=== PATIENT | female | born 1945 | race African-American/Black ===

== ENCOUNTER 2019-01-10 13:54 | Inpatient (IN) | payer MEDICARE, OTHER ==
[~2019-01-10] VITALS: Ht 160 cm; Wt 80.7 kg
[2019-01-10] MEDS ORDERED: METHYLPREDNISOLONE SOD SUCC 125 MG/2 ML VIAL IV STA (14:28)
[2019-01-10] MEDS ORDERED: ALBUTEROL (0.083%) 2.5MG/3ML NEB HHN STA (14:28)
[2019-01-10] MEDS ORDERED: IPRATROPIUM BROMIDE (0.02%) 0.5MG/2.5ML NEB HHN STA (14:28)
[2019-01-10 15:30] LABS: BASOPHILS % 1.1 % (0.0-2.0); EOSINOPHILS % 1.6 % (0.0-5.0); HEMATOCRIT. 37.8 % (36.0-48.0); HEMOGLOBIN. 12.5 g/dL (12.0-16.0); LYMPHOCYTES % 31.5 % (20.0-50.0); MEAN CORPUSCULAR HEMOGLOBIN 27.9 pg (28.0-32.0); MEAN CORPUSCULAR VOLUME 84.7 fL (81.0-99.0); MONOCYTES % 14.6 % (2.0-8.0); NEUTROPHILS % 51.2 % (40.0-76.0); PLATELET 154 x1000/uL (130-400); RED BLOOD CELL COUNT 4.47 mill/uL (4.2-5.4); RED CELL DISTRIBUTION WIDTH 13.3 % (11.6-14.6)
[2019-01-10 15:32] LABS: CHLORIDE 110 mEq/L (98-107)
[2019-01-10] MEDS ORDERED: ALBUTEROL (0.5%) 2.5MG/0.5ML NEB HHN ONE (16:00)
[2019-01-10] MEDS ORDERED: ACETAMINOPHEN 325MG TABLET PO ONE (17:15)
[2019-01-10] MEDS ORDERED: MAGNESIUM 2 G PREMIX 50 ML IV ONE (17:15)
[2019-01-10] MEDS ORDERED: IPRATROPIUM/ALBUTEROL 0.5-3(2.5)MG/3ML NEB NEB PRN (21:45)
[2019-01-10] MEDS ORDERED: ONDANSETRON HCL 4MG/2ML INJ IV PRN (21:45)
[2019-01-10] MEDS ORDERED: GUAIFENESIN 200MG/10ML SUGAR FREE UDC PO PRN (21:45)
[2019-01-10] MEDS ORDERED: LORAZEPAM 2MG/ML CPJ IV PRN (21:45)
[2019-01-10] MEDS ORDERED: DIPHENHYDRAMINE 50MG/ML VIAL IV PRN (21:45)
[2019-01-10] MEDS ORDERED: DOCUSATE SODIUM 100MG CAPSULE PO PRN (21:45)
[2019-01-10] MEDS ORDERED: NA PHOS,M-B/NA PHOS,DI-BA ENEMA 118ML PR PRN (21:45)
[2019-01-10] MEDS ORDERED: MAGNESIUM/ALUMINUM HYDROXIDE/SIMETHICONE 30ML UDC PO PRN (21:45)
[2019-01-10] MEDS ORDERED: LIDOCAINE 5% PATCH TOP STA (21:49)
[2019-01-10] MEDS: HYDROCODONE/ACETAMINOPHEN 5/325MG TABLET PO PRN (22:08)
[2019-01-10 23:30] LABS: CHLORIDE 108 mEq/L (98-107)
[2019-01-11 00:15] VITALS: BP 130/70
[2019-01-11 01:00] VITALS: BP 137/70
[2019-01-11] MEDS: ACETAMINOPHEN 325MG TABLET PO PRN ×2 (02:42→12:56)
[2019-01-11] MEDS: METHYLPREDNISOLONE SOD SUCC 125 MG/2 ML VIAL IV SCH ×3 (02:42→12:56)
[2019-01-11] MEDS: LEVOFLOXACIN 500MG PREMIX 100 ML IV SCH (02:44)
[2019-01-11 04:00] VITALS: BP 143/83
[2019-01-11] MEDS: HYDROCODONE/ACETAMINOPHEN 5/325MG TABLET PO PRN ×2 (06:56→21:08)
[2019-01-11 07:19] LABS: BASOPHILS % 0.1 % (0.0-2.0); CHLORIDE 109 mEq/L (98-107); HEMATOCRIT. 34.9 % (36.0-48.0); HEMOGLOBIN. 11.7 g/dL (12.0-16.0); LYMPHOCYTES % 20.4 % (20.0-50.0); MEAN CORPUSCULAR HEMOGLOBIN 28.3 pg (28.0-32.0); MEAN CORPUSCULAR VOLUME 84.8 fL (81.0-99.0); MEAN PLATELET VOLUME 10.5 fl (7.4-10.4); MONOCYTES % 2.5 % (2.0-8.0); PLATELET 163 x1000/uL (130-400); RED BLOOD CELL COUNT 4.12 mill/uL (4.2-5.4); RED CELL DISTRIBUTION WIDTH 13.3 % (11.6-14.6)
[2019-01-11 07:32] LABS: LDL CHOLESTEROL 124 mg/dL (5-100)
[2019-01-11 07:34] LABS: HDL CHOLESTEROL 54 mg/dL (40-59); T4 FREE 0.74 ng/dL (0.76-1.46)
[2019-01-11] MEDS: ALBUTEROL (0.083%) 2.5MG/3ML NEB HHN PRN ×2 (08:40→16:31)
[2019-01-11] MEDS: ASPIRIN 81MG EC TABLET PO SCH (09:29)
[2019-01-11] MEDS: ENOXAPARIN 40MG/0.4ML SYR SUBCUT SCH (09:29)
[2019-01-11 12:00] VITALS: BP 138/74
[2019-01-11 12:18] LABS: T4 FREE 0.76 ng/dL (0.76-1.46)
[2019-01-11 16:00] VITALS: BP 148/90
[2019-01-11] MEDS: MORPHINE SULFATE 2 MG/ML CPJ (NOT FOR IM USE) IV PRN (19:03)
[2019-01-11 20:00] VITALS: BP 154/87
[2019-01-11] MEDS: ALBUTEROL (0.083%) 2.5MG/3ML NEB HHN SCH (20:05)
[2019-01-11] MEDS: METHYLPREDNISOLONE SOD SUCC 40 MG/ML VIAL IV SCH (21:07)
[2019-01-12] VITALS: BP_SYST 136; BP_DIAS 58; BP_DIAS 85
[2019-01-12] MEDS: ALBUTEROL (0.083%) 2.5MG/3ML NEB HHN SCH ×6 (00:12→20:10)
[2019-01-12] MEDS: MORPHINE SULFATE 2 MG/ML CPJ (NOT FOR IM USE) IV PRN ×2 (01:27→10:12)
[2019-01-12] MEDS: LEVOFLOXACIN 500MG PREMIX 100 ML IV SCH (02:06)
[2019-01-12 04:00] VITALS: BP 131/71
[2019-01-12] MEDS: METHYLPREDNISOLONE SOD SUCC 40 MG/ML VIAL IV SCH ×3 (06:20→21:45)
[2019-01-12 08:00] VITALS: BP 175/86
[2019-01-12] MEDS ORDERED: BENZONATATE 100MG CAPSULE PO PRN (09:15)
[2019-01-12] MEDS: ASPIRIN 81MG EC TABLET PO SCH (10:57)
[2019-01-12] MEDS: ENOXAPARIN 40MG/0.4ML SYR SUBCUT SCH (10:58)
[2019-01-12 12:00] VITALS: BP 152/65
[2019-01-12 16:00] VITALS: BP 138/83
[2019-01-12 20:00] VITALS: BP 160/89
[2019-01-12] MEDS: HYDROCODONE/ACETAMINOPHEN 5/325MG TABLET PO PRN (21:46)
[2019-01-12] MEDS: CLONIDINE 0.1MG TABLET PO PRN (21:46)
[2019-01-13] VITALS: BP 131/63
[2019-01-13] MEDS: ALBUTEROL (0.083%) 2.5MG/3ML NEB HHN SCH ×6 (00:45→20:22)
[2019-01-13] MEDS: LEVOFLOXACIN 500MG PREMIX 100 ML IV SCH (03:14)
[2019-01-13 04:00] VITALS: BP 127/81
[2019-01-13] MEDS: METHYLPREDNISOLONE SOD SUCC 40 MG/ML VIAL IV SCH ×3 (05:21→17:18)
[2019-01-13 08:00] VITALS: BP 137/69
[2019-01-13] MEDS: FLUTICASONE PROPIONATE 50MCG/SPRAY BOTTLE BOTHNSTRLS SCH (09:38)
[2019-01-13] MEDS: ASPIRIN 81MG EC TABLET PO SCH (09:38)
[2019-01-13] MEDS: ENOXAPARIN 40MG/0.4ML SYR SUBCUT SCH (09:39)
[2019-01-13 11:39] VITALS: BP 121/71
[2019-01-13 15:54] VITALS: BP 137/66
[2019-01-13] MEDS: MORPHINE SULFATE 2 MG/ML CPJ (NOT FOR IM USE) IV PRN (15:56)
[2019-01-13] MEDS: GUAIFENESIN 600MG ER TABLET PO SCH (22:56)
[2019-01-14] VITALS: BP 164/89
[2019-01-14] MEDS: MORPHINE SULFATE 2 MG/ML CPJ (NOT FOR IM USE) IV PRN (00:52)
[2019-01-14] MEDS: CLONIDINE 0.1MG TABLET PO PRN (00:53)
[2019-01-14] MEDS: ALBUTEROL (0.083%) 2.5MG/3ML NEB HHN SCH ×5 (00:57→15:48)
[2019-01-14 04:00] VITALS: BP 144/79
[2019-01-14] MEDS: ACETAMINOPHEN 325MG TABLET PO PRN (05:48)
[2019-01-14 08:00] VITALS: BP 144/80
[2019-01-14] MEDS ORDERED: LEVOFLOXACIN 500MG TABLET PO SCH (09:00)
[2019-01-14] MEDS: METHYLPREDNISOLONE SOD SUCC 40 MG/ML VIAL IV SCH ×2 (09:04→17:22)
[2019-01-14] MEDS: ENOXAPARIN 40MG/0.4ML SYR SUBCUT SCH (09:05)
[2019-01-14] MEDS: ASPIRIN 81MG EC TABLET PO SCH (09:05)
[2019-01-14] MEDS: HYDROCODONE/ACETAMINOPHEN 5/325MG TABLET PO PRN ×2 (09:05→13:44)
[2019-01-14] MEDS: GUAIFENESIN 600MG ER TABLET PO SCH (09:05)
[2019-01-14] MEDS: FLUTICASONE PROPIONATE 50MCG/SPRAY BOTTLE BOTHNSTRLS SCH (09:07)
[2019-01-14 12:00] VITALS: BP 140/71
[2019-01-14 14:22] VITALS: BP 140/71
[2019-01-14 16:00] VITALS: BP 148/76
== END 2019-01-14 18:32 | disposition home or self-care (01) | DRG 189 ==
LOC: ER 13:54 → 8WST 21:38 → EDBEDREQ 21:41 → EDBEDREQTM 21:41 → ENRESERV 22:14
PROVIDERS: ADMIT Internal Medicine; ATTEND Internal Medicine
DX: J96.00 Acute respiratory failure, unspecified whether with hypoxia or hypercapnia (principal); J45.902 Unspecified asthma with status asthmaticus; J44.0 Chronic obstructive pulmonary disease with (acute) lower respiratory infection; J45.901 Unspecified asthma with (acute) exacerbation; B19.20 Unspecified viral hepatitis C without hepatic coma; E78.5 Hyperlipidemia, unspecified; I11.0 Hypertensive heart disease with heart failure; I50.9 Heart failure, unspecified; E11.9 Type 2 diabetes mellitus without complications; E78.00 Pure hypercholesterolemia, unspecified; Z90.710 Acquired absence of both cervix and uterus; Z88.0 Allergy status to penicillin; Z88.2 Allergy status to sulfonamides; Z88.1 Allergy status to other antibiotic agents; Z88.8 Allergy status to other drugs, medicaments and biological substances; Z91.018 Allergy to other foods; I25.2 Old myocardial infarction; Z86.73 Personal history of transient ischemic attack (TIA), and cerebral infarction without residual deficits
CPT/HCPCS: 36415; 71045; 80048; 80061; 82962; 83036; 83880; 84439; 84443; 84484; 85379; 93005; 93306; 94640; 99285; J1200; J1650; J1956; J2270; J2920; J2930; J3475; J7040; J7611